=== PATIENT | female | born 1980 | race Caucasian/White ===

== ENCOUNTER 2020-07-03 21:12 | Emergency (ER) | payer OTHER ==
[~2020-07-03] VITALS: Ht 165.1 cm; Wt 71.7 kg
[~2020-07-03 21:12] MED LIST: AMOXICILLIN500 MG PO; BACTRIM DS TAB1 EACH PO; CIPRO500 MG PO; FLAGYL500 MG PO; FLUTICASONE PRO16 GM NAS; LAMICTAL100 MG PO; LAMICTAL200 MG PO; LATUDA80 MG PO; METRONIDAZOLE500 MG PO; MUCINEX1200 MG PO; NAPROXEN500 MG PO; NORCO 5-325 TA1 EACH PO; ORTHO TRI-CYCL1 EACH PO; PERCOCET 5-3251 EACH PO; PROAIR HFA8.5 GM INH; PROVENTIL HFA6.7 GM INH; SEREVENT DISKU1 PUFF INH; TRAMADOL HCL50 MG PO; TRAZODONE HCL100 MG PO; VISTARIL50 MG PO
--- OUTSIDE RECORDS SUMMARY | 2020-07-03 21:16 | XMS ---
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 Guidelines Source: [facility] [place] Guidelines Date: 10/02/2019 Care Coordination: Member is currently engaged in [employer] services. If Mental Health services are needed, please contact: Maribel [phone] Cayla/ [place] [phone] [facility] Line [phone] E.D. VISIT COUNT (12 MO.) 1 [facility] TOTAL 1 NOTE: Visits indicate total known visits. ED/UCC VISIT TRACKING (12 MO.) 07/03/2020 21:[address] [facility] TYPE: Emergency COMPLAINT: - LT MIDDLE FINGER INJURY INPATIENT VISIT TRACKING (12 MO.) No inpatient visits to display in this time frame [email or web address]
[2020-07-03] MEDS ORDERED: HYDROXYZINE PAM50 MG PO (21:26)
[2020-07-03] MEDS ORDERED: LAMICTAL200 MG PO (21:26)
[2020-07-03] MEDS ORDERED: TRAZODONE HCL50 MG PO (21:27)
[2020-07-03] MEDS ORDERED: SERTRALINE HCL100 MG PO (21:27)
== END 2020-07-03 22:05 | disposition home or self-care (01) ==
LOC: ED 21:12
DX: S63.613A Unspecified sprain of left middle finger, initial encounter (principal); J45.909 Unspecified asthma, uncomplicated; Z88.5 Allergy status to narcotic agent; Z79.899 Other long term (current) drug therapy; X50.1XXA Overexertion from prolonged static or awkward postures, initial encounter
CPT/HCPCS: 73140; 99283-25

== ENCOUNTER 2025-02-05 17:21 | Emergency (ER) | payer OTHER ==
[~2025-02-05] VITALS: Ht 165.1 cm; Wt 85.0 kg
[~2025-02-05 17:21] MED LIST changes: +HYDROXYZINE PAM50 MG PO; +SERTRALINE HCL100 MG PO; +TRAZODONE HCL50 MG PO
[2025-02-05 18:15] VITALS: BP 120/106
== END 2025-02-05 18:15 | disposition home or self-care (01) ==
LOC: ED 17:21
DX: S61.011A Laceration without foreign body of right thumb without damage to nail, initial encounter (principal); W26.0XXA Contact with knife, initial encounter; J45.909 Unspecified asthma, uncomplicated; Z88.5 Allergy status to narcotic agent; Z79.899 Other long term (current) drug therapy
CPT/HCPCS: 12001; 99282